=== PATIENT | male | born 1945 | race Caucasian/White ===

== ENCOUNTER → 2018-11-13 | Outpatient (CLI) | payer OTHER | END | disposition home or self-care (01) | LOC: CVU 08:00 | PROVIDERS: ATTEND Internal Medicine Cardiovascular Disease | DX: I08.0 Rheumatic disorders of both mitral and aortic valves (principal); I11.9 Hypertensive heart disease without heart failure; I25.10 Atherosclerotic heart disease of native coronary artery without angina pectoris; I25.2 Old myocardial infarction | CPT/HCPCS: 93306 ==

== ENCOUNTER → 2019-12-09 | Outpatient (CLI) | payer OTHER ==
[~2019-12-09] MED LIST: AMLO5TAB4 PO; ATOR40TA78 PO; CARV12.52 PO; CARV25TA PO; CHOL10003 PO; FERR-51 PO; IRBE1TAB63 PO; PANT40TA5 PO; POLY17PO5 PO; REGADENOSON 0.4 MG/5 ML SYRINGE ONE; SUCR1ORA5 PO; TRAM50TA2 PO
== END | disposition home or self-care (01) ==
LOC: CFH 07:49
PROVIDERS: ATTEND Internal Medicine Cardiovascular Disease
DX: I21.29 ST elevation (STEMI) myocardial infarction involving other sites (principal); I10 Essential (primary) hypertension; I25.10 Atherosclerotic heart disease of native coronary artery without angina pectoris
CPT/HCPCS: 78452; 93017; A9502; J2785

== ENCOUNTER → 2020-06-30 | Outpatient (CLI) | payer OTHER ==
[~2020-06-30] MED LIST changes: -PANT40TA5 PO; +PANT40TA6 PO; -REGADENOSON 0.4 MG/5 ML SYRINGE ONE
== END | disposition home or self-care (01) ==
LOC: CFH 06:45
PROVIDERS: ATTEND Internal Medicine Cardiovascular Disease
DX: I11.9 Hypertensive heart disease without heart failure (principal); I25.10 Atherosclerotic heart disease of native coronary artery without angina pectoris
CPT/HCPCS: 93306

== ENCOUNTER 2020-09-28 06:34 | Day surgery (SDC) | payer BC ==
[~2020-09-28] VITALS: Ht 175.3 cm; Wt 100.0 kg
[2020-09-28] MEDS ORDERED: LIDOCAINE 2%, 20ML ONE (07:22)
== END 2020-09-28 08:28 | disposition home or self-care (01) ==
LOC: CACL 06:34
PROVIDERS: ATTEND Internal Medicine Cardiovascular Disease
DX: I48.20 Chronic atrial fibrillation, unspecified (principal); I10 Essential (primary) hypertension; I25.2 Old myocardial infarction; Z79.01 Long term (current) use of anticoagulants; Z79.899 Other long term (current) drug therapy; Z87.891 Personal history of nicotine dependence; Z88.8 Allergy status to other drugs, medicaments and biological substances
CPT/HCPCS: 33285; C1764

== ENCOUNTER 2020-11-21 09:33 | Day surgery (SDC) | payer BC ==
[~2020-11-21] VITALS: Ht 172.7 cm; Wt 104.5 kg
[2020-11-21 11:05] VITALS: BP 158/85
[2020-11-21] MEDS ORDERED: APIX5TAB PO (11:12)
[2020-11-21] MEDS ORDERED: Melatonin PO (11:12)
[2020-11-21] MEDS ORDERED: HYDR-3342 PO (11:12)
[2020-11-21] MEDS ORDERED: FURO-93 PO (11:12)
[2020-11-21] MEDS ORDERED: AMLO2.5T5 PO (11:12)
[2020-11-21] MEDS ORDERED: POTA10TA12 PO (11:12)
[2020-11-21] MEDS ORDERED: MULT-658 PO (11:12)
[2020-11-21] MEDS ORDERED: CARV25TA12 PO (11:12)
[2020-11-21] MEDS ORDERED: SPIR25TA5 PO (11:12)
[2020-11-21] MEDS ORDERED: HEPARIN 1,000 UNITS/ML, 10ML ONE (11:37)
[2020-11-21] MEDS ORDERED: MIDAZOLAM 1 MG/ML, 2ML ONE (11:37)
[2020-11-21] MEDS ORDERED: VERAPAMIL 2.5 MG/ML, 2ML ONE (11:37)
[2020-11-21] MEDS ORDERED: FENTANYL PF 100 MCG/2ML ONE (11:37)
[2020-11-21] MEDS ORDERED: LIDOCAINE-MPF 1%, 5ML ONE (11:37)
[2020-11-21] MEDS ORDERED: BIVALIRUDIN 250 MG ONE (11:37)
[2020-11-21 11:49] LABS: BASOPHILS % (AUTO) 3 % (0-1); EOSINOPHILS % (AUTO) 1 % (1-7); LYMPHOCYTES % (AUTO) 36 % (22-44); MEAN PLATELET VOLUME 7.5 fL (7.4-10.4); MONOCYTES % (AUTO) 9 % (2-9); NEUTROPHILS % (AUTO) 52 % (42-75); PLATELET COUNT 156 x10^3/uL (130-400); RED BLOOD COUNT 4.09 x10^6/uL (4.38-5.82); RED CELL DISTRIBUTION WIDTH 13.2 % (9.4-14.8)
[2020-11-21 11:51] LABS: MD NO
[2020-11-21 11:56] LABS: ANION GAP 6 mmol/L (5-15); CALCIUM 8.9 mg/dL (8.5-10.1); CHLORIDE 104 mmol/L (98-107); CREATININE 0.89 mg/dL (0.7-1.3)
[2020-11-21] MEDS ORDERED: SODIUM CHLORIDE 0.9% 1,000 ML IV SCH (13:00)
== END 2020-11-21 14:43 | disposition home or self-care (01) ==
LOC: CACL 09:33
PROVIDERS: ATTEND Internal Medicine Cardiovascular Disease
DX: T82.855A Stenosis of coronary artery stent, initial encounter (principal); I25.10 Atherosclerotic heart disease of native coronary artery without angina pectoris; I25.82 Chronic total occlusion of coronary artery; I10 Essential (primary) hypertension; Z88.8 Allergy status to other drugs, medicaments and biological substances; Y83.8 Other surgical procedures as the cause of abnormal reaction of the patient, or of later complication, without mention of misadventure at the time of the procedure
CPT/HCPCS: 36415; 80048; 85025; 93458; 99156; C1769; C1894; J1644; J2250; J3010; Q9967; J0583

== ENCOUNTER 2021-01-27 14:53 | Emergency (ER) | payer MEDICARE, BC ==
[~2021-01-27] VITALS: Ht 175.3 cm; Wt 100.5 kg
[~2021-01-27 14:53] MED LIST changes: +AMLO2.5T5 PO; +APIX5TAB PO; +ASPI81TA45 PO; +BISA10SU4 PR; +CARV25TA12 PO; +DIPH25CA26 PO; +DOCU-131 PO; +EZET10TA48 PO; +FURO-93 PO; +HYDR-3342 PO; +LOSA25TA25 PO; +MULT-658 PO; +Melatonin PO; +OMEP-110 PO; +OXYC5TAB98 PO; +POTA10TA12 PO; +SENN-211 PO; +SPIR25TA5 PO
[2021-01-27 15:03] VITALS: BP 117/78
--- NOTE | 2021-01-27 15:51 | NUR ---
Patient given discharge instructions and they have confirmed that they understand the instructions. Patient ambulatory with steady gait. NAD, all questions answered appropriately, denies additional needs at this time. No personal belongings left in room after discharge.
== END 2021-01-27 15:52 | disposition home or self-care (01) ==
LOC: ED 15:45
DX: K08.89 Other specified disorders of teeth and supporting structures (principal); I10 Essential (primary) hypertension; I25.2 Old myocardial infarction; Z87.891 Personal history of nicotine dependence
CPT/HCPCS: 99283

== ENCOUNTER → 2021-01-31 | Outpatient (CLI) | payer BC, MEDICARE | END | disposition home or self-care (01) | LOC: CFH 14:01 | PROVIDERS: ATTEND Internal Medicine Cardiovascular Disease | DX: I35.8 Other nonrheumatic aortic valve disorders (principal); I25.2 Old myocardial infarction; Z79.01 Long term (current) use of anticoagulants; Z95.1 Presence of aortocoronary bypass graft | CPT/HCPCS: 93306; 93356 ==